=== PATIENT | male | born 1975 | race American Indian/Alaskan Native ===

== ENCOUNTER 2021-01-25 22:41 | Emergency (ER) | payer SELFPAY ==
[2021-01-25] MEDS ORDERED: oxyCODONE /ACETAMINOPHEN 5-325MG TAB PO ONE (23:49)
--- NOTE | 2021-01-26 00:02 | Emergency Department Report ---
ED General Adult HPI - General Chief complaint: Extremity Injury, Lower Stated complaint: RIGHT LEG PAIN Time Seen by Provider: 01/25/21 23:31 Source: patient Mode of arrival: Ambulatory Limitations: No Limitations - History of Present Illness Initial comments: 45-year-old male patient presents with complaints of right thigh pain x yesterday. Patient states he was kneed in his right thigh while playing basketball. He states he subsequently developed swelling and severe pain to the right lower thigh. He denies any skin changes and states there is mild bruising. No loss of sensation or weakness in the leg per patient. He rates his pain as a 9/10 in severity. -: Sudden - Related Data Previous Rx's Medication Instructions Recorded Last Taken Type Acetaminophen/Codeine [Tylenol 1 tab PO Q8H PRN #8 tab 01/26/21 Unknown Rx /Codeine # 3 tab] Naproxen [Naprosyn] 500 mg PO BID PRN #20 tablet 01/26/21 Unknown Rx methocarbamoL [Methocarbamol] 750 - 1,500 mg PO TID PRN #24 01/26/21 Unknown Rx tablet Allergies Allergy/AdvReac Type Severity Reaction Status Date / Time No Known Allergies Allergy Unverified 01/25/21 22:46 ED Review of Systems ROS: Stated complaint: RIGHT LEG PAIN Other details as noted in HPI Constitutional: denies: chills, fever, malaise Gastrointestinal: denies: nausea, vomiting Musculoskeletal: joint swelling, arthralgia Skin: denies: change in color Neurological: denies: numbness, paresthesias ED Past Medical Hx - Past Medical History Previous Medical History?: No - Surgical History Past Surgical History?: No - Medications Home Medications: Home Medications Medication Instructions Recorded Confirmed Last Taken Type Acetaminophen/Codeine [Tylenol 1 tab PO Q8H PRN #8 tab 01/26/21 Unknown Rx /Codeine # 3 tab] Naproxen [Naprosyn] 500 mg PO BID PRN #20 tablet 01/26/21 Unknown Rx methocarbamoL [Methocarbamol] 750 - 1,500 mg PO TID PRN #24 01/26/21 Unknown Rx tablet ED Physical Exam - General Limitations: No Limitations General appearance: alert, in no apparent distress - Head Head exam: Present: atraumatic, normocephalic - Eye Eye exam: Present: normal appearance. Absent: scleral icterus - Respiratory Respiratory exam: Absent: respiratory distress - Cardiovascular Cardiovascular Exam: Present: regular rate - Extremities Exam Extremities exam: Present: full ROM, other (Tenderness to palpation along with moderate swelling noted to right anterior lower mid thigh; no erythema, warmth, or pallor noted; patient has normal pedal pulse; no posterior leg pain or swelling is noted; no pain noted to the knee; patient has full range of motion of the knee and hip) - Neurological Exam Neurological exam: Present: alert, oriented X3. Absent: normal gait (Antalgic) - Psychiatric Psychiatric exam: Present: normal affect, normal mood - Skin Skin exam: Present: warm, dry, intact, normal color. Absent: rash ED Course Vital Signs 01/25/21 22:45 Temperature 98.8 F Pulse Rate 75 Respiratory 14 Rate Blood Pressure 169/71 O2 Sat by Pulse 96 Oximetry ED Medical Decision Making - Lab Data Result diagrams: 01/26/21 01:27 01/26/21 01:27 Lab Results 01/26/21 01/26/21 Range/Units 01:27 01:27 WBC 11.5 H (4.5-11.0) K/mm3 RBC 4.31 (3.65-5.03) M/mm3 Hgb 13.1 (11.8-15.2) gm/dl Hct 39.0 (35.5-45.6) % MCV 91 (84-94) fl MCH 30 (28-32) pg MCHC 34 (32-34) % RDW 12.4 L (13.2-15.2) % Plt Count 184 (140-440) K/mm3 Lymph % (Auto) 14.6 (13.4-35.0) % [place] % (Auto) 6.4 (0.0-7.3) % Eos % (Auto) 2.0 (0.0-4.3) % Baso % (Auto) 0.2 (0.0-1.8) % Lymph # (Auto) 1.7 (1.2-5.4) K/mm3 [place] # (Auto) 0.7 (0.0-0.8) K/mm3 Eos # (Auto) 0.2 (0.0-0.4) K/mm3 Baso # (Auto) 0.0 (0.0-0.1) K/mm3 Seg Neutrophils % 76.8 H (40.0-70.0) % Seg Neutrophils # 8.9 H (1.8-7.7) K/mm3 Sodium 136 L (137-145) mmol/L Potassium 4.1 (3.6-5.0) mmol/L Chloride 101.6 (98-107) mmol/L Carbon Dioxide 24 (22-30) mmol/L Anion Gap 15 mmol/L BUN 20 (9-20) mg/dL Creatinine 0.9 (0.8-1.3) mg/dL Estimated GFR > 60 ml/min BUN/Creatinine Ratio 22 % Glucose 115 H (75-100) mg/dL Calcium 9.0 (8.4-10.2) mg/dL Total Creatine Kinase 144 (55-170) units/L - Radiology Data Radiology results: report reviewed RIGHT FEMUR 2 VIEWS INDICATION / CLINICAL INFORMATION: pain and swelling after injury COMPARISON: None available. FINDINGS: BONES / JOINT(S): No acute fracture or subluxation. No significant arthritis. SOFT TISSUES: No significant abnormality. ADDITIONAL FINDINGS: None. - Medical Decision Making 45-year-old male patient presents with complaints of right thigh pain x yesterday. Patient states he was kneed in his right thigh while playing basketball. He states he subsequently developed swelling and severe pain to the right lower thigh. He denies any skin changes and states there is mild bruising. No loss of sensation or weakness in the leg per patient. He rates his pain as a 9/10 in severity. X-ray is negative for any acute abnormalities. Given moderate swelling after direct trauma, labs were performed to rule out possibility of compartment syndrome or rhabdo. No acute abnormalities on labs and CK is normal. Patient's pain is controlled, he is well-appearing, he is stable for discharge home. Recommend follow-up with PCP in 3 days. Patient provided with crutches and placed in Robert wrap. Discussed in great detail signs and symptoms that should prompt immediate return to the ED, patient verbalizes understanding. He is to ice the leg and elevated Critical care attestation.: If time is entered above; I have spent that time in minutes in the direct care of this critically ill patient, excluding procedure time. ED Disposition Clinical Impression: Right leg injury Disposition: HOME / SELF CARE / HOMELESS Is pt being admited?: No Condition: Stable Instructions: Contusion, Muscle Strain Additional Instructions: Ice the leg for 15 minutes at a time 3 times a day for at least the next 3 days. Please also ensure that she elevate your leg is much as possible. When elevating the leg please try to get the height of the leg above your heart level. You may also place a pillow under your leg at night. If you develop any new or worsening symptoms seek immediate emergency treatment. Prescriptions: methocarbamoL [Methocarbamol] 750 - 1,500 mg PO TID PRN #24 tablet PRN Reason: muscle spasm/tightness Naproxen [Naprosyn] 500 mg PO BID PRN #20 tablet PRN Reason: pain Acetaminophen/Codeine [Tylenol /Codeine # 3 tab] 1 tab PO Q8H PRN #8 tab PRN Reason: Pain , Severe (7-10) Referrals: [facility] [Provider Group] - 3-5 Days [facility] [Provider Group] - 3-5 Days (recheck blood pressure ) Forms: Work/School Release Form(ED)
[2021-01-26] MEDS ORDERED: KETOROLAC 60 MG/2 ML INJ IM ONE (00:21)
--- NOTE | 2021-01-26 00:38 | XRay Report ---
RIGHT FEMUR 2 VIEWS INDICATION / CLINICAL INFORMATION: pain and swelling after injury COMPARISON: None available. FINDINGS: BONES / JOINT(S): No acute fracture or subluxation. No significant arthritis. SOFT TISSUES: No significant abnormality. ADDITIONAL FINDINGS: None. Signer Name: Ras Garcia MD Signed: 01/26/2021 12:33 AM Workstation Name: [id number]
[2021-01-26 01:47] LABS: Basophils % (Auto) 0.2 % (0.0-1.8); Eosinophils # (Auto) 0.2 K/mm3 (0.0-0.4); Hemoglobin 13.1 gm/dl (11.8-15.2); Lymphocytes # (Auto) 1.7 K/mm3 (1.2-5.4); Lymphocytes % (Auto) 14.6 % (13.4-35.0); Mean Corpuscular HGB Conc 34 % (32-34); Mean Corpuscular Volume 91 fl (84-94); Monocytes # (Auto) 0.7 K/mm3 (0.0-0.8); Monocytes % (Auto) 6.4 % (0.0-7.3); Platelet Count 184 K/mm3 (140-440); Red Blood Count 4.31 M/mm3 (3.65-5.03); Red Cell Distribution Width 12.4 % (13.2-15.2)
[2021-01-26 01:57] LABS: BUN/Creatinine Ratio 22; Blood Urea Nitrogen 20 mg/dL (9-20); Hemolysis Index 7
[2021-01-26 04:14] VITALS: BP 118/65
== END 2021-01-26 04:14 | disposition home or self-care (01) ==
LOC: ED 22:41
DX: S89.91XA Unspecified injury of right lower leg, initial encounter (principal); X58.XXXA Exposure to other specified factors, initial encounter; Y93.89 Activity, other specified; Y92.89 Other specified places as the place of occurrence of the external cause; Y99.8 Other external cause status
CPT/HCPCS: 36415; 73552; 80048; 82550; 85025; 96372; 99284; J1885